=== PATIENT | male | born 1950 | race Two or more races ===

== ENCOUNTER 2017-01-13 22:36 | Emergency (ER) | payer OTHER ==
[~2017-01-13 22:36] MED LIST: CIPROFLOXACIN500 MG PO; DEXAMETHASONE4 MG PO; FAMOTIDINE20 MG PO; LAC PO; LASIX20 MG PO; LEVAQUIN750 MG PO; LIPI20 PO; METFORMIN HCL500 MG PO; NOR10T PO; ZESTRIL10 MG PO; ZOFRAN ODT8 MG PO
[2017-01-13 23:30] LABS: CARBON DIOXIDE 20.2 mmol/L (21-32); CHLORIDE SERUM 98 mmol/L (98-107); CREATININE SERUM 0.8 mg/dL (0.7-1.3); GFR1 > 60 mL/min; GLUCOSE SERUM 319 mg/dL (74-106); POTASSIUM SERUM 3.9 mmol/L (3.5-5.1); SODIUM SERUM 134 mmol/L (136-145)
[2017-01-13 23:32] LABS: BASOPHIL % 0 % (0-2); PLATELET COUNT 184 x10^3mcL (130-400); RED CELL DISTRIBUTION WIDTH 20.4 % (11.5-14.5)
[2017-01-13 23:34] LABS: ALKALINE PHOSPHATASE 136 U/L (46-116); ALT/SGPT 56 U/L (16-63); AST/SGOT 6 U/L (15-37); BILIRUBIN TOTAL 0.6 mg/dL (0.20-1.00)
[2017-01-13 23:37] LABS: ALBUMIN 3.1 g/dL (3.4-5.0); TOTAL PROTEIN, SERUM 5.7 g/dL (6.4-8.2)
[2017-01-14 03:05] VITALS: BP 135/84
== END 2017-01-14 03:05 | disposition home or self-care (01) ==
LOC: ED 22:36
PROVIDERS: Emergency Medicine
DX: T38.3X1A Poisoning by insulin and oral hypoglycemic [antidiabetic] drugs, accidental (unintentional), initial encounter (principal); Y92.89 Other specified places as the place of occurrence of the external cause; E11.9 Type 2 diabetes mellitus without complications; I10 Essential (primary) hypertension; E78.00 Pure hypercholesterolemia, unspecified; C71.9 Malignant neoplasm of brain, unspecified

== ENCOUNTER 2017-03-24 14:53 | Emergency (ER) | payer OTHER ==
[2017-03-24 15:05] VITALS: BP 131/91
== END 2017-03-24 15:43 | disposition left against medical advice (07) ==
LOC: ED 14:53
DX: R41.82 Altered mental status, unspecified (principal); C71.9 Malignant neoplasm of brain, unspecified
CPT/HCPCS: 83880; G0480

== ENCOUNTER 2017-05-09 19:51 | Inpatient (IN) | payer OTHER ==
[~2017-05-09] VITALS: Ht 165.1 cm; Wt 80.7 kg
[2017-05-09 20:56] LABS: CALCIUM 8.7 mg/dL (8.5-10.1); CARBON DIOXIDE 17.5 mmol/L (21-32); CHLORIDE SERUM 104 mmol/L (98-107); GFR1 > 60 mL/min; GLUCOSE SERUM 238 mg/dL (74-106); POTASSIUM SERUM 3.9 mmol/L (3.5-5.1); SODIUM SERUM 139 mmol/L (136-145)
[2017-05-09 21:00] LABS: ALKALINE PHOSPHATASE 166 U/L (46-116); ALT/SGPT 34 U/L (16-63); AST/SGOT 22 U/L (15-37); BILIRUBIN TOTAL 0.39 mg/dL (0.20-1.00); CHOLESTEROL 191 mg/dL (<200); HDL CHOLESTEROL 36 mg/dL (40-60); TOTAL PROTEIN, SERUM 6.2 g/dL (6.4-8.2)
[2017-05-09 21:02] LABS: ALBUMIN 2.3 g/dL (3.4-5.0); PLATELET COUNT 213 x10^3mcL (130-400)
[2017-05-09 21:05] LABS: RED CELL DISTRIBUTION WIDTH 16.4 % (11.5-14.5)
[2017-05-09 21:05] LABS: microscopic required? YES; urine erythrocyte 3+ (NEGATIVE)
[2017-05-09] MEDS ORDERED: ENALAPRIL MALEA10 MG PO (21:50)
[2017-05-09] MEDS ORDERED: KEPPRA500 MG PO (21:51)
[2017-05-09] MEDS ORDERED: GEMFIBROZIL600 MG PO (21:51)
[2017-05-09] MEDS ORDERED: BACTRIM DS1 TAB PO (21:51)
[2017-05-09] MEDS ORDERED: SODIUM CHLORIDE PO (21:52)
[2017-05-09 22:23] LABS: BAND NEUTROPHIL 38 % (0-10); METAMYELOCTE 5 % (0-2); MONOCYTE 1 % (0-7); SEGMENTED NEUTROPHILS 45 % (37-75)
[2017-05-09 22:26] LABS: PLATELET MORPHOLOGY FEW CLUMPS ARE SEEN; rbc morphology (normal/abnorm) ABNORMAL (NORMAL)
[2017-05-10 01:02] VITALS: BP 118/90
[2017-05-10 02:41] LABS: T3 TOTAL 0.81 ng/mL
[2017-05-10 02:47] LABS: CHOLESTEROL/HDL RATIO 5.2
[2017-05-10 02:59] LABS: FREE T4 0.91 ng/dL (0.76-1.46); T4(THYROXINE) 5.4 ug/dL (4.7-13.3)
[2017-05-10 04:10] VITALS: BP 88/53
[2017-05-10 05:27] LABS: PLATELET COUNT 187 x10^3mcL (130-400)
[2017-05-10 05:45] LABS: RED CELL DISTRIBUTION WIDTH 16.2 % (11.5-14.5)
[2017-05-10 05:55] LABS: CALCIUM 7.6 mg/dL (8.5-10.1); CARBON DIOXIDE 19.4 mmol/L (21-32); CREATININE SERUM 1.3 mg/dL (0.7-1.3); MAGNESIUM 1.4 mg/dL (1.8-2.4); PHOSPHOROUS 2.6 mg/dL (2.5-4.9); POTASSIUM SERUM 3.3 mmol/L (3.5-5.1)
[2017-05-10 06:04] LABS: AMPHETAMINE QUAL UR NONE DETECTED (NEG <=1000)
[2017-05-10 06:07] LABS: BAND NEUTROPHIL 17 % (0-10); METAMYELOCTE 8 % (0-2); MONOCYTE 1 % (0-7); SEGMENTED NEUTROPHILS 73 % (37-75)
[2017-05-10 06:11] LABS: PLATELET MORPHOLOGY PLATELETS NORMAL; rbc morphology (normal/abnorm) ABNORMAL (NORMAL); tear drop cell (dacryocyte) 1+
[2017-05-10 08:09] VITALS: BP 99/65
[2017-05-10 12:24] VITALS: BP 109/66
[2017-05-10 15:53] VITALS: BP 101/67
[2017-05-10 20:00] VITALS: BP 88/60
[2017-05-11] VITALS (7 sets, daily range): BP systolic 11–111; BP diastolic 58–69
[2017-05-11 05:31] LABS: PLATELET COUNT 109 x10^3mcL (130-400); RED CELL DISTRIBUTION WIDTH 16.7 % (11.5-14.5)
[2017-05-11 05:59] LABS: CALCIUM 7.4 mg/dL (8.5-10.1); CARBON DIOXIDE 19.4 mmol/L (21-32); CHLORIDE SERUM 113 mmol/L (98-107); CREATININE SERUM 1.2 mg/dL (0.7-1.3); GFR1 > 60 mL/min; GLUCOSE SERUM 68 mg/dL (74-106); MAGNESIUM 2.9 mg/dL (1.8-2.4); PHOSPHOROUS 3.8 mg/dL (2.5-4.9); POTASSIUM SERUM 3.7 mmol/L (3.5-5.1); SODIUM SERUM 145 mmol/L (136-145)
[2017-05-11 06:18] LABS: BAND NEUTROPHIL 8 % (0-10); MONOCYTE 2 % (0-7); SEGMENTED NEUTROPHILS 83 % (37-75); rbc morphology (normal/abnorm) ABNORMAL (NORMAL)
[2017-05-11 06:19] LABS: ovalocyte/elliptocyte 1+; tear drop cell (dacryocyte) 1+
[2017-05-11 06:20] LABS: PLATELET MORPHOLOGY SLIGHTLY DECREASED
[2017-05-12 05:59] VITALS: BP 103/64
[2017-05-12 06:29] LABS: CALCIUM 7.9 mg/dL (8.5-10.1); CARBON DIOXIDE 21.1 mmol/L (21-32); CHLORIDE SERUM 115 mmol/L (98-107); CREATININE SERUM 0.9 mg/dL (0.7-1.3); GFR1 > 60 mL/min; GLUCOSE SERUM 72 mg/dL (74-106); MAGNESIUM 2.8 mg/dL (1.8-2.4); POTASSIUM SERUM 3.2 mmol/L (3.5-5.1); SODIUM SERUM 143 mmol/L (136-145)
[2017-05-12 06:36] LABS: BASOPHIL % 0.1 % (0-2)
[2017-05-12 06:39] LABS: PLATELET COUNT 116 x10^3mcL (130-400); RED CELL DISTRIBUTION WIDTH 16.2 % (11.5-14.5)
[2017-05-12 12:57] VITALS: BP 101/56
[2017-05-12 17:08] VITALS: BP 109/66
[2017-05-12 17:23] VITALS: Ht 165.1 cm; Wt 80.7 kg
[2017-05-12 21:44] VITALS: BP 126/73
[2017-05-13 06:14] VITALS: BP 114/71
[2017-05-13 07:06] LABS: CALCIUM 8.1 mg/dL (8.5-10.1); CARBON DIOXIDE 21.5 mmol/L (21-32); CHLORIDE SERUM 113 mmol/L (98-107); GFR1 > 60 mL/min; GLUCOSE SERUM 192 mg/dL (74-106); POTASSIUM SERUM 3.6 mmol/L (3.5-5.1); SODIUM SERUM 142 mmol/L (136-145)
[2017-05-13 07:10] LABS: BASOPHIL % 0.2 % (0-2); PLATELET COUNT 132 x10^3mcL (130-400)
[2017-05-13 07:17] LABS: RED CELL DISTRIBUTION WIDTH 16.4 % (11.5-14.5)
[2017-05-13 10:15] VITALS: BP 107/69
[2017-05-13 13:45] VITALS: BP 99/67
[2017-05-13 17:45] VITALS: BP 118/72
[2017-05-13 21:05] VITALS: BP 128/65
[2017-05-14 05:45] VITALS: BP 105/61
[2017-05-14 06:10] LABS: CALCIUM 8.1 mg/dL (8.5-10.1); CARBON DIOXIDE 24.1 mmol/L (21-32); CHLORIDE SERUM 113 mmol/L (98-107); CREATININE SERUM 1.1 mg/dL (0.7-1.3); GFR1 > 60 mL/min; GLUCOSE SERUM 178 mg/dL (74-106); POTASSIUM SERUM 4.2 mmol/L (3.5-5.1); SODIUM SERUM 142 mmol/L (136-145)
[2017-05-14 07:03] LABS: BASOPHIL % 0.2 % (0-2); PLATELET COUNT 156 x10^3mcL (130-400)
[2017-05-14 07:11] LABS: RED CELL DISTRIBUTION WIDTH 16.6 % (11.5-14.5)
[2017-05-14 09:07] VITALS: BP 110/50; BP 121/64
[2017-05-14 13:00] VITALS: BP 107/61
[2017-05-14 16:42] VITALS: BP 118/74
[2017-05-14 17:42] LABS: RED BLOOD CELLS 2.71 M/mm3 (4.52-5.90)
[2017-05-14 17:43] LABS: IRON 42 ug/dL (65-170)
[2017-05-14 17:44] LABS: TOTAL IRON BINDING CAPACITY 208 ug/dL (250-450)
[2017-05-14 20:59] VITALS: BP 109/62
[2017-05-15 06:22] LABS: CALCIUM 7.9 mg/dL (8.5-10.1); CARBON DIOXIDE 22.9 mmol/L (21-32); CHLORIDE SERUM 115 mmol/L (98-107); CREATININE SERUM 0.9 mg/dL (0.7-1.3); GFR1 > 60 mL/min; GLUCOSE SERUM 120 mg/dL (74-106); MAGNESIUM 1.8 mg/dL (1.8-2.4); POTASSIUM SERUM 3.7 mmol/L (3.5-5.1); SODIUM SERUM 146 mmol/L (136-145)
[2017-05-15 07:26] LABS: BASOPHIL % 0 % (0-2); PLATELET COUNT 165 x10^3mcL (130-400); RED CELL DISTRIBUTION WIDTH 16.3 % (11.5-14.5)
[2017-05-15 08:11] VITALS: BP 118/63
[2017-05-15 13:15] VITALS: BP 114/66
[2017-05-15 17:07] VITALS: BP 136/95
[2017-05-15 21:35] VITALS: BP 145/90
[2017-05-16 06:13] VITALS: BP 145/93
[2017-05-16 07:15] LABS: CALCIUM 7.9 mg/dL (8.5-10.1); CARBON DIOXIDE 22.2 mmol/L (21-32); CHLORIDE SERUM 111 mmol/L (98-107); CREATININE SERUM 0.9 mg/dL (0.7-1.3); GFR1 > 60 mL/min; GLUCOSE SERUM 187 mg/dL (74-106); POTASSIUM SERUM 3.7 mmol/L (3.5-5.1); SODIUM SERUM 144 mmol/L (136-145)
[2017-05-16 10:23] VITALS: BP 121/66
[2017-05-16 14:03] LABS: PLATELET COUNT 180 x10^3mcL (130-400)
[2017-05-16 14:50] LABS: RED CELL DISTRIBUTION WIDTH 16.6 % (11.5-14.5)
[2017-05-16 15:05] LABS: BAND NEUTROPHIL 10 % (0-10); METAMYELOCTE 1 % (0-2); MONOCYTE 2 % (0-7); SEGMENTED NEUTROPHILS 70 % (37-75)
[2017-05-16 15:06] LABS: PLATELET MORPHOLOGY PLATELETS NORMAL; rbc morphology (normal/abnorm) ABNORMAL (NORMAL)
[2017-05-16 18:15] VITALS: BP 104/61
[2017-05-16 22:25] VITALS: BP 128/73
[2017-05-17 06:16] VITALS: BP 121/79
[2017-05-17 07:24] LABS: CALCIUM 7.6 mg/dL (8.5-10.1); CHLORIDE SERUM 115 mmol/L (98-107); CREATININE SERUM 0.8 mg/dL (0.7-1.3); GFR1 > 60 mL/min; POTASSIUM SERUM 3.5 mmol/L (3.5-5.1); SODIUM SERUM 146 mmol/L (136-145)
[2017-05-17 07:51] LABS: GLUCOSE SERUM 53 mg/dL (74-106)
[2017-05-17 08:05] LABS: PLATELET COUNT 198 x10^3mcL (130-400)
[2017-05-17 08:07] LABS: RED CELL DISTRIBUTION WIDTH 16.3 % (11.5-14.5)
[2017-05-17 09:43] VITALS: BP 113/70
[2017-05-17 13:33] LABS: ATYPICAL LYMPH 2 %; BAND NEUTROPHIL 11 % (0-10); BASOPHIL 0 % (0-2); METAMYELOCTE 5 % (0-2); MONOCYTE 5 % (0-7); SEGMENTED NEUTROPHILS 60 % (37-75)
[2017-05-17 13:34] LABS: PLATELET MORPHOLOGY PLATELETS DECREASED; rbc morphology (normal/abnorm) ABNORMAL (NORMAL)
[2017-05-17 17:15] VITALS: BP 119/70
[2017-05-17 22:16] VITALS: BP 111/78
[2017-05-18 06:06] VITALS: BP 128/64
[2017-05-18 07:25] LABS: BASOPHIL % 0.2 % (0-2); PLATELET COUNT 214 x10^3mcL (130-400)
[2017-05-18 07:32] LABS: CALCIUM 8.2 mg/dL (8.5-10.1); CARBON DIOXIDE 20.5 mmol/L (21-32); CHLORIDE SERUM 110 mmol/L (98-107); GFR1 > 60 mL/min; GLUCOSE SERUM 214 mg/dL (74-106); MAGNESIUM 1.8 mg/dL (1.8-2.4); PHOSPHOROUS 4.1 mg/dL (2.5-4.9); POTASSIUM SERUM 3.9 mmol/L (3.5-5.1); SODIUM SERUM 143 mmol/L (136-145)
[2017-05-18 07:56] LABS: RED CELL DISTRIBUTION WIDTH 16.8 % (11.5-14.5)
[2017-05-18 09:45] VITALS: BP 112/67
[2017-05-18 18:20] VITALS: BP 126/82
[2017-05-18 20:34] VITALS: BP 103/60
[2017-05-19 05:32] VITALS: BP 118/60
[2017-05-19 06:54] LABS: CALCIUM 8.1 mg/dL (8.5-10.1); CARBON DIOXIDE 20.9 mmol/L (21-32); CHLORIDE SERUM 111 mmol/L (98-107); CREATININE SERUM 0.8 mg/dL (0.7-1.3); GFR1 > 60 mL/min; GLUCOSE SERUM 94 mg/dL (74-106); MAGNESIUM 1.9 mg/dL (1.8-2.4); PHOSPHOROUS 3.4 mg/dL (2.5-4.9); POTASSIUM SERUM 3.7 mmol/L (3.5-5.1); SODIUM SERUM 144 mmol/L (136-145)
[2017-05-19 07:36] LABS: BASOPHIL % 0.3 % (0-2); PLATELET COUNT 249 x10^3mcL (130-400)
[2017-05-19 07:40] LABS: RED CELL DISTRIBUTION WIDTH 17.1 % (11.5-14.5)
[2017-05-19 08:40] VITALS: BP 108/72
[2017-05-19 11:03] LABS: rbc morphology (normal/abnorm) ABNORMAL (NORMAL); tear drop cell (dacryocyte) 1+
[2017-05-19 12:51] VITALS: BP 108/72
[2017-05-19] MEDS ORDERED: LEVAQUIN750 MG PO (12:57)
[2017-05-19] MEDS ORDERED: PEPCID20 MG PO (13:26)
== END 2017-05-19 14:45 | DRG 871 ==
LOC: ED 19:51 → IC 21:54 → DU 21:54 → IC 21:54 → DU 05-11 17:12 → IC 05-11 17:13 → DU 05-11 18:16 → MU 05-15 00:18
PROVIDERS: Emergency Medicine; Family Medicine; ADMIT Family Medicine
PROC: 05HM33Z Insertion of Infusion Device into Right Internal Jugular Vein, Percutaneous Approach (ICD-10-PCS; principal; 2017-05-10)
PROC: B543ZZA Ultrasonography of Right Jugular Veins, Guidance (ICD-10-PCS; 2017-05-10)
DX: A41.51 Sepsis due to Escherichia coli [E. coli] (principal); R65.21 Severe sepsis with septic shock; K72.01 Acute and subacute hepatic failure with coma; N17.0 Acute kidney failure with tubular necrosis; E43 Unspecified severe protein-calorie malnutrition; C71.9 Malignant neoplasm of brain, unspecified; N39.0 Urinary tract infection, site not specified; B37.0 Candidal stomatitis; D68.69 Other thrombophilia; E11.65 Type 2 diabetes mellitus with hyperglycemia; D64.9 Anemia, unspecified; E78.5 Hyperlipidemia, unspecified; E03.9 Hypothyroidism, unspecified; Z68.27 Body mass index [BMI] 27.0-27.9, adult; Z16.24 Resistance to multiple antibiotics
CPT/HCPCS: 36556; 83880; 84439; 92610-GN; 97110-GP; 97530-GP; B4164; J0696; J1100; J1642; J1815; J1885; J2060; J2543; J3475; J3480; J3490; J7030; J7042; J8540; Q0092